=== PATIENT | female | born 1940 | race Caucasian/White ===

== ENCOUNTER 2017-02-20 18:37 | Emergency (ER) | payer MEDICARE, BC ==
--- NOTE | 2017-02-28 09:05 | ER ---
ADMIT: 02/20/2017 RM/LOC: ER [facility] MR#: [id number] [address] [id number] SUMMERELIE JOELLEN Bishop [address] [place] [address] Emergency Room Report SEX: F AGE: 76 : 1940 DATE: 02/20/2017 HISTORY OF PRESENT ILLNESS: This is a 76-year-old female, who is visiting her daughter. She had, had nausea and vomiting for 1 day, diarrhea for 3 days, pain with urination for 1 week, and some slight fever. PAST MEDICAL HISTORY: She has had a history of breast cancer with urosepsis; hypothyroidism; AFib; hypertension; and UTIs in the past, which had yielded a positive allergy record for Levaquin and Macrobid. PAST SURGICAL HISTORY: She also has had knee and hip surgery and mastectomy. PHYSICAL EXAMINATION: GENERAL: She is alert and oriented. Very pleasant. VITAL SIGNS: Blood pressure 123/58, with a pulse of 67, respirations 16, temp is 98.8, and O2 saturations 94%. ABDOMEN: States there is some suprapubic tenderness. She is afebrile now. Denies flank pain. Rest of the physical examination is negative including also no edema in her extremities. LABORATORY DATA: CMP; glucose 125 with a creatinine of 1.1, WBCs 11.9 with a hemoglobin of 13 and hematocrit of 39, platelets are 159. Her urine is hazy with protein 2+, blood 1+, nitrite positive, leukocytes esterase 3+, with wbc's of 716, many white cell clumps, and rbc's 8. Culture and sensitivity set up. Rocephin shot 1 g IM and Pyridium for home use as well as Bactrim to start tomorrow for 10 days. Encourage hydration. Follow up. CLINICAL IMPRESSION: Urinary tract infection, dysuria. I am going to send her home with a prescription for Zofran in case she needs it for nausea. JOHANNA Sampson / Dash Tobar MD / miguelangel JOB #: [id number] CC: Dash Tobar MD, Attending Physician
== END 2017-02-20 21:25 | disposition home or self-care (01) ==
LOC: ER 18:37
DX: N39.0 Urinary tract infection, site not specified (principal); I48.91 Unspecified atrial fibrillation; I10 Essential (primary) hypertension; E03.9 Hypothyroidism, unspecified; Z88.1 Allergy status to other antibiotic agents; Z88.8 Allergy status to other drugs, medicaments and biological substances

== ENCOUNTER 2017-03-24 20:19 | Emergency (ER) | payer MEDICARE, BC ==
--- NOTE | 2017-03-28 19:13 | ER ---
ADMIT: 03/24/2017 RM/LOC: ER [facility] MR#: [id number] [address] [address] [place] [address] [facility] [place] [place] [address] Emergency Room Report SEX: F AGE: 76 : 1940 DATE: 03/24/2017 HISTORY OF PRESENT ILLNESS: The patient is a 76-year-old female with past medical history of hypertension, asthma, sleep apnea, and AFib, came to the ER with chief complaint of sore throat and clear runny nose. The patient states she had cough for the last 2 days and noticed that the cough has a white sputum. The patient denies any fever. Appetite is normal. PHYSICAL EXAMINATION: VITAL SIGNS: The patient was afebrile in the ER, knowing that she did not take any Tylenol. Vital signs were normal. The patient had heart rate of 61 with respiratory rate of 16. HEENT/NECK: The patient had normal oropharynx without any erythema or exudate. Trachea midline without any stridor. CHEST: Clear. HEART: Normal heart sounds. ABDOMEN: Soft. The rest of the physical exam was noncontributory. IMAGING: Chest x-ray was negative for any infiltration or opacities. The patient was reassured and was discharged to home with return precautions, follow up with the primary doctor as needed. DIAGNOSIS: Upper respiratory infection. Andriy Montes De Oca MD/ miguelangel JOB #: [id number] CC: Lev Jimenez MD, Attending Physician Benito Camara DO, Family Physician
== END 2017-03-24 22:35 | disposition home or self-care (01) ==
LOC: ER 20:19
DX: J06.9 Acute upper respiratory infection, unspecified (principal); I10 Essential (primary) hypertension; F32.9 Major depressive disorder, single episode, unspecified; J45.909 Unspecified asthma, uncomplicated; E03.9 Hypothyroidism, unspecified; Z88.1 Allergy status to other antibiotic agents; Z79.82 Long term (current) use of aspirin; Z79.899 Other long term (current) drug therapy; Z90.49 Acquired absence of other specified parts of digestive tract